=== PATIENT | female | born 1990 | race African-American/Black ===

== ENCOUNTER 2017-06-08 07:42 | Emergency (ER) | payer MEDICAID, OTHER ==
[~2017-06-08] VITALS: Ht 170.2 cm; Wt 132.0 kg
[2017-06-08 11:00] VITALS: BP 111/56
== END 2017-06-08 12:12 | disposition home or self-care (01) ==
LOC: ER 08:31
DX: Z32.01 Encounter for pregnancy test, result positive (principal); F17.200 Nicotine dependence, unspecified, uncomplicated; F12.10 Cannabis abuse, uncomplicated
CPT/HCPCS: 36415; 76801; 76817; 81025; 84702; 86850; 86900; 86901; 99285; Z7610

== ENCOUNTER 2017-11-25 11:23 | Emergency (ER) | payer MEDICAID, OTHER ==
[~2017-11-25] VITALS: Ht 170.2 cm; Wt 118.0 kg
[2017-11-25 11:29] VITALS: BP 139/84
== END 2017-11-25 14:46 | disposition home or self-care (01) ==
LOC: ER 12:19
DX: O26.891 Other specified pregnancy related conditions, first trimester (principal); K08.89 Other specified disorders of teeth and supporting structures; F12.10 Cannabis abuse, uncomplicated; Z3A.01 Less than 8 weeks gestation of pregnancy
CPT/HCPCS: 99283

== ENCOUNTER 2018-07-25 16:39 | Emergency (ER) | payer MEDICAID, OTHER ==
[~2018-07-25] VITALS: Ht 167.6 cm; Wt 203.9 kg
[2018-07-25 17:06] VITALS: BP 116/71
== END 2018-07-25 23:10 | disposition left against medical advice (07) ==
LOC: ER 16:39
DX: Z53.21 Procedure and treatment not carried out due to patient leaving prior to being seen by health care provider (principal)
CPT/HCPCS: 82962

== ENCOUNTER 2018-07-28 07:34 | Emergency (ER) | payer MEDICAID, OTHER ==
[~2018-07-28] VITALS: Ht 167.6 cm; Wt 181.8 kg
[2018-07-28] MEDS ORDERED: SODIUM CHLORIDE 0.9% 1,000 ML IV ONE (08:30)
[2018-07-28 08:39] LABS: CLARITY URINE CLEAR (CLEAR); COLOR URINE YELLOW (YELLOW); KETONES URINE NEGATIVE (NEGATIVE); LEUKOCYTE ESTERASE URINE 2+ (NEGATIVE); NITRITE URINE NEGATIVE (NEGATIVE); OCCULT BLOOD URINE TRACE (NEGATIVE); PH URINE 5.5 (4.5-8.0); PROTEIN URINE NEGATIVE (NEGATIVE); SPECIFIC GRAVITY URINE 1.031 (1.005-1.030); UROBILINOGEN URINE 0.2 E.U./dL (0.2-1.0)
[2018-07-28 08:50] LABS: BASOPHILS % 1.1 % (0.0-2.0); EOSINOPHILS % 3.7 % (0.0-5.0); HEMATOCRIT. 40.5 % (36.0-48.0); HEMOGLOBIN. 13.4 g/dL (12.0-16.0); LYMPHOCYTES % 32.1 % (20.0-50.0); MEAN CORPUSCULAR HEMOGLOBIN 27.9 pg (28.0-32.0); MEAN CORPUSCULAR VOLUME 84.6 fL (81.0-99.0); MEAN PLATELET VOLUME 8.5 fl (7.4-10.4); MONOCYTES % 7.6 % (2.0-8.0); NEUTROPHILS % 55.5 % (40.0-76.0); PLATELET 216 x1000/uL (130-400); RED BLOOD CELL COUNT 4.78 mill/uL (4.2-5.4); RED CELL DISTRIBUTION WIDTH 15.1 % (11.6-14.6)
[2018-07-28 08:56] LABS: CHLORIDE 99 mEq/L (98-107)
[2018-07-28 09:11] LABS: BETA HYDROXYBUTYRATE 0.5 mMol/L (0.0-0.3)
[2018-07-28 11:08] VITALS: BP 140/86
== END 2018-07-28 11:15 | disposition home or self-care (01) ==
LOC: ER 07:34
DX: E11.9 Type 2 diabetes mellitus without complications (principal); N39.0 Urinary tract infection, site not specified; H53.8 Other visual disturbances; M79.605 Pain in left leg; M79.604 Pain in right leg; R63.1 Polydipsia; R35.8 Other polyuria; Z91.013 Allergy to seafood; Z98.890 Other specified postprocedural states
CPT/HCPCS: 36415; 80053; 81003; 81025; 82010; 82962; 83036; 85025; 87086; 99283; J7030

== ENCOUNTER 2018-10-28 09:01 | Emergency (ER) | payer OTHER, MEDICAID ==
[~2018-10-28] VITALS: Ht 170.2 cm; Wt 200.4 kg
[2018-10-28] MEDS ORDERED: SODIUM CHLORIDE 0.9% 1,000 ML IV ONE ×2 (11:30→13:00)
[2018-10-28 12:31] LABS: BASOPHILS % 1.1 % (0.0-2.0); EOSINOPHILS % 2.6 % (0.0-5.0); HEMATOCRIT. 42.2 % (36.0-48.0); HEMOGLOBIN. 14.3 g/dL (12.0-16.0); LYMPHOCYTES % 31.6 % (20.0-50.0); MEAN CORPUSCULAR HEMOGLOBIN 28.1 pg (28.0-32.0); MEAN CORPUSCULAR VOLUME 83.1 fL (81.0-99.0); MEAN PLATELET VOLUME 8.9 fl (7.4-10.4); MONOCYTES % 7.9 % (2.0-8.0); NEUTROPHILS % 56.8 % (40.0-76.0); PLATELET 237 x1000/uL (130-400); RED BLOOD CELL COUNT 5.07 mill/uL (4.2-5.4); RED CELL DISTRIBUTION WIDTH 14.7 % (11.6-14.6)
[2018-10-28 12:35] LABS: CHLORIDE 98 mEq/L (98-107)
[2018-10-28 13:15] LABS: CLARITY URINE CLEAR (CLEAR); COLOR URINE YELLOW (YELLOW); KETONES URINE 1+ (NEGATIVE); LEUKOCYTE ESTERASE URINE NEGATIVE (NEGATIVE); NITRITE URINE NEGATIVE (NEGATIVE); OCCULT BLOOD URINE NEGATIVE (NEGATIVE); PH URINE 5.5 (4.5-8.0); PROTEIN URINE TRACE (NEGATIVE); SPECIFIC GRAVITY URINE 1.047 (1.005-1.030); UROBILINOGEN URINE 0.2 E.U./dL (0.2-1.0)
[2018-10-28 13:47] VITALS: BP 120/66
[2018-10-28] MEDS ORDERED: METFORMIN HCL 500MG TABLET PO SCH (17:00)
== END 2018-10-28 14:33 | disposition home or self-care (01) ==
LOC: ER 09:06
DX: E11.65 Type 2 diabetes mellitus with hyperglycemia (principal); Z79.84 Long term (current) use of oral hypoglycemic drugs; Z91.013 Allergy to seafood; Z98.890 Other specified postprocedural states
CPT/HCPCS: 36415; 80053; 81003; 81025; 82962; 85025; 96360; 96361; 99283; J7030

== ENCOUNTER 2018-12-09 16:19 | Emergency (ER) | payer MEDICAID, OTHER ==
[~2018-12-09] VITALS: Ht 170.2 cm; Wt 191.2 kg
[2018-12-09] MEDS ORDERED: METF-416 PO (16:40)
[2018-12-09] MEDS ORDERED: ACETAMINOPHEN 500MG TABLET PO ONE (18:45)
[2018-12-09 19:13] VITALS: BP 147/92
== END 2018-12-09 19:17 | disposition home or self-care (01) ==
LOC: ER 16:19
DX: K04.7 Periapical abscess without sinus (principal); K08.89 Other specified disorders of teeth and supporting structures; E11.9 Type 2 diabetes mellitus without complications
CPT/HCPCS: 81025; 99282

== ENCOUNTER 2019-06-25 12:07 | Emergency (ER) | payer OTHER ==
[~2019-06-25] VITALS: Ht 170.2 cm; Wt 166.0 kg
[~2019-06-25 12:07] MED LIST: METF-416 PO
[2019-06-25 12:20] VITALS: BP 190/145
== END 2019-06-25 16:42 | disposition left against medical advice (07) ==
LOC: ER 12:07
DX: Z53.21 Procedure and treatment not carried out due to patient leaving prior to being seen by health care provider (principal)

== ENCOUNTER 2020-02-13 18:09 | Emergency (ER) | payer OTHER ==
[~2020-02-13] VITALS: Ht 170.2 cm; Wt 155.0 kg
[2020-02-13 19:13] LABS: BASOPHILS % 1.1 % (0.0-2.0); EOSINOPHILS % 2.5 % (0.0-5.0); HEMATOCRIT. 44.3 % (36.0-48.0); HEMOGLOBIN. 15.1 g/dL (12.0-16.0); LYMPHOCYTES % 35.5 % (20.0-50.0); MEAN CORPUSCULAR HEMOGLOBIN 29.7 pg (28.0-32.0); MEAN CORPUSCULAR VOLUME 87.4 fL (81.0-99.0); MEAN PLATELET VOLUME 8.5 fl (7.4-10.4); MONOCYTES % 6.8 % (2.0-8.0); NEUTROPHILS % 54.1 % (40.0-76.0); PLATELET 244 x1000/uL (130-400); RED BLOOD CELL COUNT 5.07 mill/uL (4.2-5.4); RED CELL DISTRIBUTION WIDTH 13.6 % (11.6-14.6)
[2020-02-13 19:19] LABS: CHLORIDE 99 mEq/L (98-107)
[2020-02-13] MEDS ORDERED: INSULIN REGULAR (HUMULIN R) 300UNITS/3ML SUBCUT ONE (20:15)
[2020-02-13 20:56] VITALS: BP 134/82
== END 2020-02-13 20:58 | disposition home or self-care (01) ==
LOC: ER 18:09
DX: E11.65 Type 2 diabetes mellitus with hyperglycemia (principal); R42 Dizziness and giddiness; Z79.84 Long term (current) use of oral hypoglycemic drugs; Z98.890 Other specified postprocedural states; Z91.013 Allergy to seafood
CPT/HCPCS: 36415; 80053; 81025; 82962; 85025; 93005; 96372; 99284; J1815

== ENCOUNTER 2020-06-06 11:05 | Emergency (ER) | payer OTHER ==
[~2020-06-06] VITALS: Ht 170.2 cm; Wt 155.0 kg
[2020-06-06] MEDS ORDERED: FLUORESCEIN SODIUM 1MG/STRIP LEFTEYE ONE (12:00)
[2020-06-06] MEDS ORDERED: TETRACAINE 0.5% OPHTH DROPS 4ML LEFTEYE ONE (12:00)
[2020-06-06] MEDS ORDERED: IBUPROFEN 600MG TABLET PO ONE (12:15)
[2020-06-06 12:40] VITALS: BP 137/88
== END 2020-06-06 12:40 | disposition home or self-care (01) ==
LOC: ER 11:05
DX: H10.9 Unspecified conjunctivitis (principal); E11.9 Type 2 diabetes mellitus without complications; Z98.890 Other specified postprocedural states
CPT/HCPCS: 99283

== ENCOUNTER 2021-06-15 17:41 | Emergency (ER) | payer OTHER ==
[~2021-06-15] VITALS: Ht 170.2 cm; Wt 150.0 kg
[2021-06-15 17:54] VITALS: BP 153/101
[2021-06-15] MEDS ORDERED: ACET-2708 MT (22:45)
[2021-06-15] MEDS ORDERED: CHLO473M2 MT (22:46)
== END 2021-06-15 23:20 | disposition home or self-care (01) ==
LOC: ER 17:41
DX: S02.5XXA Fracture of tooth (traumatic), initial encounter for closed fracture (principal); E11.9 Type 2 diabetes mellitus without complications; Z79.84 Long term (current) use of oral hypoglycemic drugs; Z91.013 Allergy to seafood; X58.XXXA Exposure to other specified factors, initial encounter; Y93.89 Activity, other specified; Y92.018 Other place in single-family (private) house as the place of occurrence of the external cause
CPT/HCPCS: 99282